=== PATIENT | female | born 1985 | race Caucasian/White ===

== ENCOUNTER 2021-04-22 14:27 | Emergency (ER) | payer OTHER, SELFPAY ==
--- NOTE | ~2021-04-22 | XR_ITS ---
EXAMINATION: XR lumbar spine 2-3V DATE: 04/22/2021 19:29 INDICATION: 8 months of low back pain radiating down the left leg TECHNIQUE: Anteroposterior and lateral views of the lumbar spine, and cone-down lateral view of the l umbosacral junction were obtained. COMPARISON: 08/25/2013 FINDINGS: Alignment is normal. Vertebral body heights are normal. Mild disc height loss at T10-T11 through T12- L1. Lumbar disc heights are normal. Lumbar facet joints and bilateral sacroiliac joints are unremarka ble. IMPRESSION: 1. Mild lower thoracic spondylosis. Reviewed, dictated and finalized at location [facility]
[2021-04-22 14:34] VITALS: BP 138/73; PULSE 85; RESP 18; TEMP 36.2; O2SAT 85
--- NOTE | 2021-04-22 18:53 | ED.GENADULT ---
HPI - General Adult General Chief complaint: Extremity Injury, Lower Stated complaint: L leg pain Time Seen by Provider: 04/22/21 16:58 Source: patient Mode of arrival: ambulatory Limitations: no limitations History of Present Illness HPI narrative: Patient presents for evaluation of low back pain with radiation to left lower extremity. She indicates that her pain is related to sciatica. She states she was seen providers in emergency department in the past but has never had imaging. She states she is learning to deal with that . She cannot identify any precipitating event or cause. Her pain has been present for the last 8 months but states that as of late her pain has been worse. She currently rates her pain as 6 out of 10 in severity, described as catching sensation. She has taken aleve and gabapentin in the past. She is not taking any medications at present time. She has been using a TENS unit. She denies saddle anesthesia, bladder/bowel incontinence. Related Data Home Medications Medication Instructions Recorded Confirmed buprenorphine-naloxone 2 film SUBLINGUAL DAILY 04/22/21 Allergies Allergy/AdvReac Type Severity Reaction Status Date / Time No Known Allergies Allergy Verified 04/22/21 16:53 Review of Systems Review of Systems: CONSTITUTIONAL: Denies fever, chills, or sweats. EYES: Denies visual changes, redness, or discharge. ENT: Denies rhinorrhea, congestion, sore throat, or otalgia. CARDIOVASCULAR: Denies chest pain, palpitations, or edema. RESPIRATORY: Denies cough or dyspnea. GASTROINTESTINAL: Denies abdominal pain, nausea, vomiting, or diarrhea. GENITOURINARY: Denies dysuria or hematuria. SKIN: Denies rash or itching. MUSCULOSKELETAL: Reports low back pain with radiation to the left lower extremity. NEUROLOGIC: Denies headache, numbness, dizziness, or weakness. PSYCHIATRIC: Denies anxiety or depression. [facility] Past Medical History Medical History (Updated 04/22/21 @ 21:11 by Satnam Nunes, VARUN, AL[place]) No pertinent past medical history Surgical History Surgical History History of cholecystectomy History of tubal ligation Family History Family History Father No pertinent past medical history Social History Social History Smoking status: Former smoker Substance use: never Living arrangements: with family Gender identity (if verbalized by the patient): Female Sexual Orientation (if Verbalized by the Patient): Straight or Heterosexual Spiritual care concerns: No Exam Narrative: GENERAL: Well-appearing, well-nourished, and in no acute distress. HEAD: Normocephalic, atraumatic. EYES: PERRLA and EOMI. ENT: Nares clear, no rhinorrhea or epistaxis. Mucous membranes moist. Oropharynx without tonsillar hypertrophy exudate or other lesions. Bilateral TMs pearly glass nonbulging NECK: Supple. No adenopathy or masses. No carotid bruits or JVD CHEST: Clear to auscultation. No respiratory distress. No wheezes rales or rhonchi HEART: Regular rate and rhythm. No murmur heard. Normal peripheral pulses. ABDOMEN: Soft, nontender, nondistended, normal active bowel sounds. BACK: No tenderness in midline or paraspinous muscles bilaterally of the lumbar spine. No tenderness over the SI joints EXTREMITIES: Normal range of motion. No edema. Negative straight leg raise bilaterally SKIN: Warm, dry, no rash. NEURO: No focal deficits. Alert and oriented x3. PSYCH: Normal mood and affect. Course Course Emergency Course: This is a 35-year-old female who presented with complaints of low back pain with radiation down the left lower extremity. This appears to be a chronic issue. X-ray was obtained and showed spondylosis. She was given Toradol and Flexeril in the emergency department. She had some improvement in her pain
[2021-04-22] MEDS: CYCLOBENZAPRINE HCL 10 MG TABLET PO (19:00)
[2021-04-22] MEDS: KETOROLAC (*BKC) 60 MG/2 ML VIAL IM (19:00)
--- NOTE | 2021-04-22 19:23 | PC.NURSE ---
Pt to XRAY at this time.
[2021-04-22 19:51] VITALS: BP 123/79; PULSE 69; RESP 15; O2SAT 98
[2021-04-22 21:33] VITALS: BP 117/71; PULSE 72; RESP 17; O2SAT 99
== END 2021-04-22 21:34 | disposition home or self-care (01) ==
PROVIDERS: Emergency Provider Nurse Practitioner
DX: M47.814 Spondylosis without myelopathy or radiculopathy, thoracic region (principal); Z87.891 Personal history of nicotine dependence
CPT/HCPCS: 72100; 81025; 96372; 99283; A9270; J1885

== ENCOUNTER 2024-09-01 08:02 | Emergency (ER) | payer SELFPAY ==
--- NOTE | 2024-09-01 08:05 | ED_ITS ---
HPI - URI/Sore Throat General Chief Complaint: Upper Respiratory Infection Stated Complaint: throat pain,head throbbing Time Seen by Provider: 09/01/24 08:05 Source: patient Mode of arrival: ambulatory Limitations: no limitations History of Present Illness HPI Narrative: Ele is a 39-year-old female patient presenting to the clinic today with complaints of sore throat and headache since last night. She reports no known fever. Does have a low-grade 99.5 degree temp in the clinic today. Denies any runny nose, cough, or congestion. States the pain is on the left side of the throat and she has a throbbing headache. Denies any nausea, vomiting, diarrhea. Denies any chest pain or shortness of breath Related Data Allergies Allergy/AdvReac Type Severity Reaction Status Date / Time No Known Allergies Allergy Verified 09/01/24 08:06 Review of Systems Review of Systems: Pertinent positives per HPI. Patient denies any fever, chills, rash, visual changes, dizziness, cough, shortness of breath, chest pain, palpitations, nausea, vomiting, diarrhea, constipation, abdominal pain, or any urinary issues. [facility] Past Medical History Medical History (Updated 09/01/24 @ 08:24 by [employer] APRN) No pertinent past medical history Surgical History Surgical History History of cholecystectomy History of tubal ligation Family History Family History Father No pertinent past medical history Social History Social History Smoking status: Former smoker Substance use: never Living arrangements: with family Gender identity (if verbalized by the patient): Female Sexual Orientation (if Verbalized by the Patient): Straight or Heterosexual Spiritual care concerns: No Comments At the time of my signature, I reviewed and agree with the nursing past medical, surgical, social, and family history. There is no relevant family history pertinent to the patient complaint. Exam Narrative: General: Well-developed, obese, in no apparent distress Head: Normocephalic, atraumatic Eyes: Pupils equally round and reactive to light bilaterally, EOM intact, sclera and conjunctive clear, no discharge, lids normal Ears: TMs intact and clear, ear canals clear, no drainage, grossly hearing normal. Nose: Nares patent, no discharge, no inflammation, no sinus tenderness. Mouth: Oral pharynx red without lesions or masses, good dentition, MMM. Neck: Supple, trachea midline, no enlargement of anterior or posterior cervical nodes, no thyroid masses or goiter palpable. Cardio: Regular rate and rhythm, s1 and s2 normal, no murmur appreciated. Resp: Clear to auscultation bilaterally, no rhonchi, rales, wheezing or rubs Course Course Emergency Course: Portions of this record may have been created with voice recognition software. Level of Care: Express Care Visit Vital Signs Vital signs: Vital signs reviewed MDM - URI/Sore Throat MDM Narrative Medical decision making narrative: At the time of visit patient is resting comfortably on the exam table. Patient appears to be nontoxic. Labs: Strep test was positive in the clinic today. Plan: Patient has strep pharyngitis. Prescription for amoxicillin was sent to the pharmacy. Supportive measures were discussed with the patient and they voiced understanding discharge instructions and agrees to treatment plan. Return precautions reviewed Differential Diagnosis Differential diagnosis: Likely upper respiratory infection, otitis media, sinusitis, viral infection, bronchitis, influenza, pharyngitis and other (COVID) Discharge Plan Discharge Clinical Impression: Acute streptococcal pharyngitis Patient Disposition: Home Condition: Stable Instructions: Antibiotic Form, Strep Throat (ED) Additional Instructions: Strep test is positive in the clinic today. Change her toothbrush in 24 hours after initiation of the antibiotics Take prescription medications only as prescribed-amoxicillin Increase fluids and stay well hydrated Tylenol/motrin for pain/fever Flonase and OTC antihistamines as directed Vicks vapor rub to open sinuses Sinus rinses for congestion Cepacol spray, cough drops, throat lozenges, warm tea with honey/lemon, gargle salt water to soothe throat BRAT diet for diarrhea Clear liquids x 24 hours then advance as tolerated for nausea/vomiting Go to the ED if you develop a worsening in your condition- high fever not controlled by Tylenol or Motrin, dehydration, weakness, lethargy, shortness of breath, or chest pain. Follow up with your PCP in 3-5 days if symptoms persist. Patient Language: Amharic Prescriptions: New amoxicillin 875 mg tablet 875 mg PO Q12H 10 Days Qty: 20 0RF Follow-up/Referrals: PHYSICIAN,REPRESENTATIVE PERSONAL SERVICE [Primary Care Provider] - Stand Alone Forms: Work/School Release IP Time of Disposition: 08:24 Quality NIHSS Nursing Documentation ED NIHSS nursing documentation: reviewed/agree
[2024-09-01 08:10] VITALS: BP 125/75; PULSE 97; RESP 18; TEMP 37.5; O2SAT 99
[2024-09-01 08:28] LABS: EDSTREPNEGPOS1 Positive (Negative)
== END 2024-09-01 08:31 | disposition home or self-care (01) ==
PROVIDERS: Emergency Provider Nurse Practitioner Family
DX: J02.0 Streptococcal pharyngitis (principal); Z87.891 Personal history of nicotine dependence
CPT/HCPCS: 87880; 99213; G0463